=== PATIENT | male | born 1995 | race Two or more races ===

== ENCOUNTER 2021-10-03 10:48 | Emergency (ER) | payer OTHER ==
[2021-10-03 10:56] VITALS: BP 133/85
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
== END 2021-10-03 12:23 | disposition home or self-care (01) ==
LOC: ED 10:48
DX: S16.1XXA Strain of muscle, fascia and tendon at neck level, initial encounter (principal); V49.88XA Car occupant (driver) (passenger) injured in other specified transport accidents, initial encounter
CPT/HCPCS: 99281; 99282